=== PATIENT | female | born 1965 | race Caucasian/White ===

== ENCOUNTER 2017-11-09 01:37 | Emergency (ER) | payer MEDICAID ==
[~2017-11-09] VITALS: Ht 160 cm; Wt 104.5 kg
[~2017-11-09 01:37] MED LIST: PHEN-716 PO
[2017-11-09 01:41] VITALS: BP 122/77
[2017-11-09] MEDS ORDERED: phenazopyridine 100mg tablet PO ONE (02:00)
[2017-11-09] MEDS ORDERED: ibuprofen tablet 400 MG TABLET PO ONE (02:00)
[2017-11-09 02:12] LABS: URINE HCG NEGATIVE (NEG)
[2017-11-09 02:18] LABS: CLARITY,URINE CLOUDY (Clear); COLOR,URINE YELLOW (Yellow); GLUCOSE, URINE NEGATIVE (Neg); KETONES,URINE NEGATIVE (Neg); LEUKOCYTE ESTERASE ,URINE MODERATE (Neg); NITRITES, URINE NEGATIVE (Neg); OCCULT BLOOD,URINE MODERATE (Neg); PH,URINE 5.5 (4.8-8.0); PROTEIN,URINE TRACE mg/dl (Neg); UROBILINOGEN,URINE 0.2 E.U/dL (0.2-1.0)
[2017-11-09 02:19] LABS: UA COLLECTION TYPE CLN CATCH MIDSTREAM; WBC,URINE 30-50 /HPF (0-4)
[2017-11-09 02:20] LABS: BACTERIA,URINE FEW /HPF (Neg); SQUAMOUS EPITHELIAL CELL,UR FEW /LPF (FEW); WBC CLUMPS,URINE MODERATE /HPF (NEGATIVE)
[2017-11-09] MEDS ORDERED: SULF1TAB49 PO (02:28)
[2017-11-09] MEDS ORDERED: sulfamethoxazole/trimethoprim DS (800/160mg) tablet PO ONE (02:30)
== END 2017-11-09 02:47 | disposition home or self-care (01) ==
LOC: ER 01:38
DX: N39.0 Urinary tract infection, site not specified (principal); E11.9 Type 2 diabetes mellitus without complications; Z88.0 Allergy status to penicillin; Z79.899 Other long term (current) drug therapy
CPT/HCPCS: 81001; 81025; 87077; 87088; 87186; 99284

== ENCOUNTER 2017-11-26 02:15 | Emergency (ER) | payer MEDICAID ==
[~2017-11-26] VITALS: Ht 160 cm; Wt 109.6 kg
[2017-11-26 02:20] VITALS: BP 115/84
[2017-11-26] MEDS ORDERED: ibuprofen tablet 400 MG TABLET PO ONE (02:35)
== END 2017-11-26 03:27 | disposition home or self-care (01) ==
LOC: ER 02:16
DX: S13.9XXA Sprain of joints and ligaments of unspecified parts of neck, initial encounter (principal); G43.909 Migraine, unspecified, not intractable, without status migrainosus; J45.909 Unspecified asthma, uncomplicated; E11.9 Type 2 diabetes mellitus without complications; Z98.51 Tubal ligation status; Z90.89 Acquired absence of other organs; Z88.0 Allergy status to penicillin; Z79.899 Other long term (current) drug therapy; X50.1XXA Overexertion from prolonged static or awkward postures, initial encounter; Y93.89 Activity, other specified; Y92.89 Other specified places as the place of occurrence of the external cause; Y99.8 Other external cause status
CPT/HCPCS: 99284

== ENCOUNTER 2018-10-27 15:27 | Emergency (ER) | payer MEDICAID ==
[~2018-10-27] VITALS: Ht 162.6 cm; Wt 85.0 kg
[2018-10-27 15:46] VITALS: BP 147/55
[2018-10-27 16:50] LABS: URINE HCG NEGATIVE (NEG)
[2018-10-27 16:52] LABS: CLARITY,URINE CLOUDY (Clear); COLOR,URINE STRAW (Yellow); GLUCOSE, URINE NEGATIVE (Neg); KETONES,URINE NEGATIVE (Neg); LEUKOCYTE ESTERASE ,URINE LARGE (Neg); NITRITES, URINE NEGATIVE (Neg); OCCULT BLOOD,URINE SMALL (Neg); PROTEIN,URINE NEGATIVE (Neg); UROBILINOGEN,URINE 0.2 E.U/dL (0.2-1.0)
[2018-10-27 16:54] LABS: UA COLLECTION TYPE CLN CATCH MIDSTREAM
[2018-10-27 17:18] LABS: SQUAMOUS EPITHELIAL CELL,UR MANY /LPF (FEW)
[2018-10-27 17:19] LABS: BACTERIA,URINE 1+ /HPF (Neg); RBC,URINE 0-2 /HPF (0-2); WBC,URINE 50-100 /HPF (0-4)
[2018-10-27] MEDS ORDERED: nitrofuran/nitrofuran macrocrysal 100 MG capsule PO ONE (17:25)
[2018-10-27] MEDS ORDERED: SULF1TAB49 PO (17:26)
[2018-10-27] MEDS ORDERED: NITR100C6 PO (17:28)
== END 2018-10-27 17:45 | disposition home or self-care (01) ==
LOC: ER 15:28
DX: N39.0 Urinary tract infection, site not specified (principal); G43.909 Migraine, unspecified, not intractable, without status migrainosus; J45.909 Unspecified asthma, uncomplicated; E11.9 Type 2 diabetes mellitus without complications; G89.29 Other chronic pain; Z90.89 Acquired absence of other organs; Z98.51 Tubal ligation status; Z88.0 Allergy status to penicillin; Z88.1 Allergy status to other antibiotic agents; Z79.899 Other long term (current) drug therapy
CPT/HCPCS: 81001; 81025; 99283

== ENCOUNTER 2020-02-13 13:02 | Emergency (ER) | payer MEDICAID ==
[~2020-02-13] VITALS: Ht 160 cm; Wt 120.0 kg
[~2020-02-13 13:02] MED LIST changes: +NITR100C6 PO
[2020-02-13 13:12] VITALS: BP 146/73
[2020-02-13 14:05] LABS: BASOPHILS # (AUTO) 0.2 X10'3 (0-0.2); BASOPHILS % (AUTO) 1.5 % (0-1); EOSINOPHILS # (AUTO) 0.1 X10'3 (0-0.9); EOSINOPHILS % (AUTO) 0.8 % (0-6); HEMATOCRIT 42.6 % (35.0-45.0); HEMOGLOBIN 14.2 g/dl (12.0-16.0); LYMPHOCYTES # (AUTO) 4.4 X10'3 (1.1-4.8); LYMPHOCYTES % (AUTO) 40.6 % (21-51); MEAN CORPUSCULAR HGB CONC 33.4 g/dL (33.0-36.5); MEAN CORPUSCULAR VOLUME 86.9 FL (78-98); MEAN PLATELET VOLUME 8.6 FL (7.4-10.4); MONOCYTES # (AUTO) 0.4 X10'3 (0-0.9); MONOCYTES % (AUTO) 3.4 % (2-12); NEUTROPHILS # (AUTO) 5.8 X10'3 (1.8-7.7); NEUTROPHILS % (AUTO) 53.7 % (42-75); PLATELET COUNT 243 X10'3 (140-440); RED BLOOD COUNT 4.91 X10'6 (4.20-5.60); RED CELL DISTRIBUTION WIDTH 14.4 % (11.5-14.5); WHITE BLOOD COUNT 10.9 X10'3 (4.5-11.0)
[2020-02-13 14:13] LABS: ALANINE AMINOTRANSFERASE 34 U/L (12-78); ALBUMIN 3.8 G/DL (3.4-5.0); ALBUMIN/GLOBULIN RATIO 0.9 (1.1-1.5); ALKALINE PHOSPHATASE 98 IU/L (46-116); ANION GAP 11 (8-16); ASPARTATE AMINO TRANSFERASE 19 U/L (10-37); BILIRUBIN,TOTAL 0.8 MG/DL (0.1-1.0); BLOOD UREA NITROGEN 16 MG/DL (7-18); BUN/CREATININE RATIO 16.5 (6.6-38.0); CHLORIDE 104 MMOL/L (99-107); CREATININE 0.97 MG/DL (0.40-0.90); GLUCOSE 144 MG/DL (70-104); POTASSIUM 3.5 MMOL/L (3.5-5.1); SODIUM 138 MMOL/L (135-145); TOTAL CARBON DIOXIDE 23.5 MMOL/L (24-32); TOTAL PROTEIN 8.1 G/DL (6.4-8.2); eGFR 60 ML/MIN
== END 2020-02-13 17:46 | disposition home or self-care (01) ==
LOC: ER 13:03
DX: R07.89 Other chest pain (principal); R42 Dizziness and giddiness; R06.02 Shortness of breath; G43.909 Migraine, unspecified, not intractable, without status migrainosus; J45.909 Unspecified asthma, uncomplicated; E11.9 Type 2 diabetes mellitus without complications; G89.29 Other chronic pain; F41.9 Anxiety disorder, unspecified; Z98.51 Tubal ligation status; Z90.49 Acquired absence of other specified parts of digestive tract; Z88.0 Allergy status to penicillin; Z88.1 Allergy status to other antibiotic agents; Z79.899 Other long term (current) drug therapy
CPT/HCPCS: 36415; 71045; 80053; 83880; 84484; 85025; 93005; 99285

== ENCOUNTER 2020-04-25 19:16 | Emergency (ER) | payer MEDICAID ==
[~2020-04-25] VITALS: Ht 160 cm; Wt 118.2 kg
[2020-04-25 19:24] VITALS: BP 147/99
--- NOTE | 2020-04-25 19:36 | NUR ---
Pt. seen and evaluated by PA prior to RN intervention. See PA notes for assessment.
== END 2020-04-25 19:34 | disposition home or self-care (01) ==
LOC: ER 19:16
DX: M79.10 Myalgia, unspecified site (principal); R05 Cough; R53.83 Other fatigue; Z20.828 Contact with and (suspected) exposure to other viral communicable diseases; G43.909 Migraine, unspecified, not intractable, without status migrainosus; J45.909 Unspecified asthma, uncomplicated; E11.9 Type 2 diabetes mellitus without complications; G89.29 Other chronic pain; F41.9 Anxiety disorder, unspecified; Z87.440 Personal history of urinary (tract) infections; Z90.89 Acquired absence of other organs; Z98.51 Tubal ligation status; Z88.0 Allergy status to penicillin; Z88.1 Allergy status to other antibiotic agents; Z79.899 Other long term (current) drug therapy
CPT/HCPCS: 36415; 87635; 99283

== ENCOUNTER 2020-08-18 21:06 | Emergency (ER) | payer MEDICAID ==
[~2020-08-18] VITALS: Ht 160 cm; Wt 112.0 kg
[2020-08-18 22:15] LABS: CLARITY,URINE CLOUDY (Clear); COLOR,URINE YELLOW (Yellow); GLUCOSE, URINE NEGATIVE (Neg); KETONES,URINE NEGATIVE (Neg); LEUKOCYTE ESTERASE ,URINE MODERATE (Neg); NITRITES, URINE NEGATIVE (Neg); OCCULT BLOOD,URINE MODERATE (Neg); PH,URINE 5.5 (4.8-8.0); PROTEIN,URINE 30 mg/dl (Neg); UROBILINOGEN,URINE 0.2 E.U/dL (0.2-1.0)
[2020-08-18 22:20] LABS: UA COLLECTION TYPE CLN CATCH MIDSTREAM
[2020-08-18 22:22] LABS: BACTERIA,URINE FEW /HPF (Neg); RBC,URINE 0-2 /HPF (0-2); SQUAMOUS EPITHELIAL CELL,UR FEW /LPF (FEW); WBC,URINE 50-100 /HPF (0-4)
[2020-08-18] MEDS ORDERED: CEFD300C3 PO (22:24)
[2020-08-18] MEDS ORDERED: fluconazole 150mg tablet PO ONE (22:25)
[2020-08-18] MEDS ORDERED: CefTRIAXone 1000mg IM Kit (w/lidocaine diluent) IM ONE (22:25)
[2020-08-18] MEDS ORDERED: PHEN-786 PO (22:26)
[2020-08-18 23:03] VITALS: BP 149/95
== END 2020-08-18 23:05 | disposition home or self-care (01) ==
LOC: ER 21:06
DX: N39.0 Urinary tract infection, site not specified (principal); B37.9 Candidiasis, unspecified; R30.9 Painful micturition, unspecified; R19.7 Diarrhea, unspecified; G43.909 Migraine, unspecified, not intractable, without status migrainosus; J45.909 Unspecified asthma, uncomplicated; E11.9 Type 2 diabetes mellitus without complications; G89.29 Other chronic pain; F41.9 Anxiety disorder, unspecified; Z87.440 Personal history of urinary (tract) infections; Z90.89 Acquired absence of other organs; Z98.51 Tubal ligation status; Z88.0 Allergy status to penicillin; Z88.1 Allergy status to other antibiotic agents; Z79.2 Long term (current) use of antibiotics; Z79.899 Other long term (current) drug therapy
CPT/HCPCS: 81001; 87077; 87088; 87186; 96372; 99283; J0696

== ENCOUNTER 2021-08-28 11:04 | Emergency (ER) | payer MEDICAID ==
[~2021-08-28] VITALS: Ht 160 cm; Wt 118.2 kg
[~2021-08-28 11:04] MED LIST changes: +PHEN-786 PO
[2021-08-28 11:22] VITALS: BP 112/59
[2021-08-28 11:45] LABS: CLARITY,URINE SLIGHTLY CLOUDY (Clear); COLOR,URINE YELLOW (Yellow); GLUCOSE, URINE NEGATIVE (Neg); KETONES,URINE TRACE mg/dl (Neg); LEUKOCYTE ESTERASE ,URINE TRACE (Neg); NITRITES, URINE POSITIVE (Neg); PH,URINE 5.5 (4.8-8.0); PROTEIN,URINE TRACE mg/dl (Neg); UROBILINOGEN,URINE 0.2 E.U/dL (0.2-1.0)
[2021-08-28 11:47] LABS: OCCULT BLOOD,URINE NEGATIVE (Neg); UA COLLECTION TYPE CLN CATCH MIDSTREAM
[2021-08-28 11:51] LABS: WBC,URINE 20-30 /HPF (0-4)
--- NOTE | 2021-08-28 11:51 | NUR ---
LAB REJECTING CULTURE DUE TO TOO MANY EPITHELIAL CELLS
[2021-08-28 11:52] LABS: BACTERIA,URINE 2+ /HPF (Neg); MUCUS STRANDS FEW /LPF (Neg); RBC,URINE 0-2 /HPF (0-2); SQUAMOUS EPITHELIAL CELL,UR MANY /LPF (FEW)
[2021-08-28] MEDS ORDERED: CIPR-202 PO (12:03)
[2021-08-28] MEDS ORDERED: phenazopyridine 100mg tablet PO ONE (12:05)
[2021-08-28] MEDS ORDERED: CefTRIAXone 1000mg IM Kit (w/lidocaine diluent) IM ONE (12:05)
== END 2021-08-28 12:42 | disposition home or self-care (01) ==
LOC: ER 11:04
DX: N39.0 Urinary tract infection, site not specified (principal); R30.0 Dysuria; R10.84 Generalized abdominal pain; G43.909 Migraine, unspecified, not intractable, without status migrainosus; J45.909 Unspecified asthma, uncomplicated; E11.9 Type 2 diabetes mellitus without complications; G89.29 Other chronic pain; F41.9 Anxiety disorder, unspecified; Z87.440 Personal history of urinary (tract) infections; Z98.51 Tubal ligation status; Z90.89 Acquired absence of other organs; Z88.0 Allergy status to penicillin; Z88.1 Allergy status to other antibiotic agents; Z88.6 Allergy status to analgesic agent; Z79.899 Other long term (current) drug therapy
CPT/HCPCS: 81001; 96372; 99283; J0696

== ENCOUNTER 2021-09-06 17:47 | Emergency (ER) | payer MEDICAID ==
[~2021-09-06] VITALS: Ht 160 cm; Wt 117.0 kg
[~2021-09-06 17:47] MED LIST changes: +CIPR-202 PO
[2021-09-06 17:59] VITALS: BP 162/84
[2021-09-06] MEDS ORDERED: WITC1MED TOP (19:59)
[2021-09-06] MEDS ORDERED: PHEN1SUP96 PR (19:59)
== END 2021-09-06 20:18 | disposition home or self-care (01) ==
LOC: ER 17:47
DX: K62.89 Other specified diseases of anus and rectum (principal); K64.4 Residual hemorrhoidal skin tags; K64.8 Other hemorrhoids; G43.909 Migraine, unspecified, not intractable, without status migrainosus; J45.909 Unspecified asthma, uncomplicated; E11.9 Type 2 diabetes mellitus without complications; G89.29 Other chronic pain; Z87.440 Personal history of urinary (tract) infections; Z98.51 Tubal ligation status; Z88.0 Allergy status to penicillin; Z88.1 Allergy status to other antibiotic agents; Z88.8 Allergy status to other drugs, medicaments and biological substances; Z79.2 Long term (current) use of antibiotics; Z79.899 Other long term (current) drug therapy
CPT/HCPCS: 99282; 99283

== ENCOUNTER 2021-10-24 17:37 | Emergency (ER) | payer MEDICAID ==
[~2021-10-24] VITALS: Ht 160 cm; Wt 113.6 kg
[~2021-10-24 17:37] MED LIST changes: -CIPR-202 PO; +PHEN1SUP96 PR; +WITC1MED TOP
[2021-10-24 18:36] VITALS: BP 113/69
[2021-10-24 19:06] LABS: BASOPHILS # (AUTO) 0.1 X10'3 (0-0.2); BASOPHILS % (AUTO) 1.1 % (0-1); EOSINOPHILS # (AUTO) 0.2 X10'3 (0-0.9); EOSINOPHILS % (AUTO) 2.9 % (0-6); HEMATOCRIT 43.1 % (35.0-45.0); HEMOGLOBIN 14.4 g/dl (12.0-16.0); LYMPHOCYTES # (AUTO) 3.3 X10'3 (1.1-4.8); LYMPHOCYTES % (AUTO) 38.9 % (21-51); MEAN CORPUSCULAR HEMOGLOBIN 28.7 PG (27.0-31.0); MEAN CORPUSCULAR HGB CONC 33.4 g/dL (33.0-36.5); MEAN CORPUSCULAR VOLUME 85.9 FL (78-98); MEAN PLATELET VOLUME 9.1 FL (7.4-10.4); MONOCYTES # (AUTO) 0.6 X10'3 (0-0.9); NEUTROPHILS # (AUTO) 4.2 X10'3 (1.8-7.7); NEUTROPHILS % (AUTO) 50.1 % (42-75); PLATELET COUNT 211 X10'3 (140-440); RED BLOOD COUNT 5.01 X10'6 (4.20-5.60); RED CELL DISTRIBUTION WIDTH 14.4 % (11.5-14.5); WHITE BLOOD COUNT 8.5 X10'3 (4.5-11.0)
[2021-10-24 19:11] LABS: URINE HCG NEGATIVE (NEG)
[2021-10-24 19:16] LABS: CLARITY,URINE CLEAR (Clear); COLOR,URINE YELLOW (Yellow); GLUCOSE, URINE NEGATIVE (Neg); KETONES,URINE NEGATIVE (Neg); LEUKOCYTE ESTERASE ,URINE NEGATIVE (Neg); NITRITES, URINE NEGATIVE (Neg); OCCULT BLOOD,URINE NEGATIVE (Neg); PH,URINE 5.5 (4.8-8.0); PROTEIN,URINE NEGATIVE (Neg); UROBILINOGEN,URINE 0.2 E.U/dL (0.2-1.0)
[2021-10-24 19:18] LABS: ALANINE AMINOTRANSFERASE 23 U/L (12-78); ALBUMIN 3.7 G/DL (3.4-5.0); ALBUMIN/GLOBULIN RATIO 0.9 (1.1-1.5); ALKALINE PHOSPHATASE 124 IU/L (46-116); ANION GAP 7 (8-16); ASPARTATE AMINO TRANSFERASE 10 U/L (10-37); BILIRUBIN,TOTAL 0.4 MG/DL (0.1-1.0); BLOOD UREA NITROGEN 13 MG/DL (7-18); CALCIUM 8.8 MG/DL (8.5-10.1); CHLORIDE 107 MMOL/L (99-107); CREATININE 0.81 MG/DL (0.40-0.90); GLUCOSE 99 MG/DL (70-104); LIPASE 109 U/L (73-393); POTASSIUM 3.9 MMOL/L (3.5-5.1); SODIUM 143 MMOL/L (135-145); TOTAL CARBON DIOXIDE 28.9 MMOL/L (24-32); TOTAL PROTEIN 7.8 G/DL (6.4-8.2); eGFR 74 ML/MIN
[2021-10-24 19:19] LABS: UA COLLECTION TYPE CLN CATCH MIDSTREAM
[2021-10-24] MEDS ORDERED: mag hydrox/Alum hydrox/simeth 30ml oral suspension PO ONE (19:40)
[2021-10-24] MEDS ORDERED: LIDOcaine Viscous 15ml cup MM ONE (19:40)
[2021-10-24] MEDS ORDERED: pantoprazole 40mg Tablet.DR PO ONE (19:40)
[2021-10-24] MEDS ORDERED: ONDA4TAB12 PO (20:35)
== END 2021-10-24 20:50 | disposition home or self-care (01) ==
LOC: ER 17:39
DX: R10.12 Left upper quadrant pain (principal); G43.909 Migraine, unspecified, not intractable, without status migrainosus; J45.909 Unspecified asthma, uncomplicated; E11.9 Type 2 diabetes mellitus without complications; G89.29 Other chronic pain; F41.9 Anxiety disorder, unspecified; Z98.51 Tubal ligation status; Z90.89 Acquired absence of other organs; Z88.0 Allergy status to penicillin; Z88.1 Allergy status to other antibiotic agents; Z88.6 Allergy status to analgesic agent; Z79.899 Other long term (current) drug therapy
CPT/HCPCS: 36415; 74176; 80053; 81003; 81025; 83690; 85025; 99284

== ENCOUNTER 2022-04-01 18:12 | Emergency (ER) | payer MEDICAID ==
[~2022-04-01] VITALS: Ht 160 cm; Wt 113.0 kg
[2022-04-01 18:12] VITALS: BP 133/70
[~2022-04-01 18:12] MED LIST changes: +ONDA4TAB12 PO
[2022-04-01 19:12] LABS: URINE HCG NEGATIVE (NEG)
[2022-04-01 19:13] LABS: CLARITY,URINE SLIGHTLY CLOUDY (Clear); COLOR,URINE YELLOW (Yellow); GLUCOSE, URINE NEGATIVE (Neg); KETONES,URINE NEGATIVE (Neg); LEUKOCYTE ESTERASE ,URINE NEGATIVE (Neg); NITRITES, URINE NEGATIVE (Neg); OCCULT BLOOD,URINE LARGE (Neg); PROTEIN,URINE 30 mg/dl (Neg); UROBILINOGEN,URINE 0.2 E.U/dL (0.2-1.0)
[2022-04-01 19:21] LABS: UA COLLECTION TYPE NON-SPECIFIED
[2022-04-01 19:24] LABS: BACTERIA,URINE FEW /HPF (Neg); SQUAMOUS EPITHELIAL CELL,UR FEW /LPF (FEW)
[2022-04-01 19:25] LABS: MUCUS STRANDS FEW /LPF (Neg)
[2022-04-01] MEDS ORDERED: PHEN-786 PO (19:34)
[2022-04-01] MEDS ORDERED: CEPH250T PO (19:34)
[2022-04-01] MEDS ORDERED: cephalexin 250mg capsule PO ONE (19:35)
--- NOTE | 2022-04-01 19:46 | NUR ---
po med given
== END 2022-04-01 19:47 | disposition home or self-care (01) ==
LOC: ER 18:12
DX: N39.0 Urinary tract infection, site not specified (principal); R30.9 Painful micturition, unspecified; R30.0 Dysuria; G43.909 Migraine, unspecified, not intractable, without status migrainosus; J45.909 Unspecified asthma, uncomplicated; E11.9 Type 2 diabetes mellitus without complications; G89.29 Other chronic pain; F41.9 Anxiety disorder, unspecified; Z87.440 Personal history of urinary (tract) infections; Z98.51 Tubal ligation status; Z90.89 Acquired absence of other organs; Z88.0 Allergy status to penicillin; Z88.1 Allergy status to other antibiotic agents; Z88.6 Allergy status to analgesic agent; Z79.2 Long term (current) use of antibiotics; Z79.899 Other long term (current) drug therapy
CPT/HCPCS: 81001; 81025; 87077; 87088; 87186; 99283

== ENCOUNTER 2022-10-15 14:17 | Emergency (ER) | payer MEDICAID ==
[~2022-10-15] VITALS: Ht 160 cm; Wt 115.9 kg
[2022-10-15 15:16] VITALS: BP 129/103
[2022-10-15] MEDS ORDERED: CEFD300C3 PO ×5 (17:28→18:26)
== END 2022-10-15 17:53 | disposition home or self-care (01) ==
LOC: ER 14:18
DX: H66.92 Otitis media, unspecified, left ear (principal); Z20.822 Contact with and (suspected) exposure to COVID-19; J45.909 Unspecified asthma, uncomplicated; J06.9 Acute upper respiratory infection, unspecified; G89.29 Other chronic pain; F41.9 Anxiety disorder, unspecified; G43.909 Migraine, unspecified, not intractable, without status migrainosus; Z88.0 Allergy status to penicillin; Z88.1 Allergy status to other antibiotic agents; Z88.6 Allergy status to analgesic agent; Z79.899 Other long term (current) drug therapy
CPT/HCPCS: 87811; 99283

== ENCOUNTER 2024-07-06 10:59 | Outpatient (CLI) | payer OTHER ==
[~2024-07-06 10:59] MED LIST changes: +ONDA-243 PO; -ONDA4TAB12 PO
== END 2024-07-06 23:59 | disposition home or self-care (01) ==
LOC: MRI02 10:59
PROVIDERS: ATTEND Student in an Organized Health Care Education/Training Program
DX: S93.602A Unspecified sprain of left foot, initial encounter (principal); M79.672 Pain in left foot; R60.9 Edema, unspecified; X58.XXXA Exposure to other specified factors, initial encounter; Y93.89 Activity, other specified; Y92.89 Other specified places as the place of occurrence of the external cause; Y99.8 Other external cause status
CPT/HCPCS: 73718; 73721